=== PATIENT | male | born 1985 | race Caucasian/White ===

== ENCOUNTER 2022-09-04 12:04 | Emergency (ER) | payer OTHER ==
[2022-09-04 13:13] VITALS: BP 153/89; RESP 18; TEMP 98.4; BMI 29.2
[2022-09-04] MEDS ORDERED: METHOCARBAMOL 500 MG TABLET PO ONE (14:19)
[2022-09-04] MEDS ORDERED: IBUPROFEN 600 MG TABLET (FP) PO ONE ×2 (14:19→14:47)
[2022-09-04] MEDS ORDERED: METHOCARBAMOL 500 MG TABLET ONE (14:47)
[2022-09-04 15:38] VITALS: PULSE 79
== END 2022-09-04 15:03 | disposition home or self-care (01) ==
LOC: JERFT 12:04 → JER 12:04 → JERFT 15:03
DX: S39.012A Strain of muscle, fascia and tendon of lower back, initial encounter (principal); S46.911A Strain of unspecified muscle, fascia and tendon at shoulder and upper arm level, right arm, initial encounter; V43.52XA Car driver injured in collision with other type car in traffic accident, initial encounter
CPT/HCPCS: 72100-TC-FY; 99283-25

== ENCOUNTER 2024-04-23 13:59 | Emergency (ER) | payer OTHER ==
[2024-04-23 14:04] VITALS: BP 167/90; PULSE 116; RESP 18; TEMP 97; BMI 27.4
[2024-04-23] MEDS ORDERED: DIPHTH,PERTUSS(ACELL),TET 0.5 ML DISP.SYRIN IM ONE (15:04)
[2024-04-23] MEDS: DIPHTH,PERTUSS(ACELL),TET 0.5 ML DISP.SYRIN IM ONE (15:07)
== END 2024-04-23 15:09 | disposition home or self-care (01) ==
LOC: JERFT 13:59
PROC: 0XQNXZZ Repair Right Index Finger, External Approach (ICD-10-PCS; principal; 2024-04-23)
PROC: 3E0234Z Introduction of Serum, Toxoid and Vaccine into Muscle, Percutaneous Approach (ICD-10-PCS; 2024-04-23)
DX: S61.210A Laceration without foreign body of right index finger without damage to nail, initial encounter (principal); W26.0XXA Contact with knife, initial encounter; Z23 Encounter for immunization
CPT/HCPCS: 12002; 90471; 90715; 99284-25